=== PATIENT | male | born 1990 | race Caucasian/White ===

== ENCOUNTER 2023-09-02 15:32 | Emergency (ER) | payer BC, SELFPAY ==
[2023-09-02 15:46] VITALS: BP 144/87; PULSE 96; RESP 16; TEMP 36.9; O2SAT 100
--- NOTE | 2023-09-02 16:06 | ED.EXTPRO ---
HPI - Extremity Problem General Chief complaint: Extremity Problem,Nontraumatic Stated complaint: Right Big Toe Pain Time Seen by Provider: 09/02/23 16:23 Source: patient and RN notes reviewed Mode of arrival: ambulatory Limitations: no limitations History of Present Illness HPI Narrative: 33-year-old male presents with concern for pain, redness, swelling to the 1st digit of the right foot. Reports it started Thursday. Reports he has had gout once before many years ago after ingesting a large amount of protein. Reports he recently ingested a large amount of protein MD Complaint: extremity pain Related Data Allergies Allergy/AdvReac Type Severity Reaction Status Date / Time amoxicillin AdvReac Unknown Nausea and Verified 09/02/23 15:56 Vomiting ciprofloxacin AdvReac Unknown Nausea and Verified 09/02/23 15:56 Vomiting Review of Systems Review of Systems: CONSTITUTIONAL: Denies malaise, chills, sweats, or fever. SKIN: Denies rash or itching, open skin, laceration, abrasion MUSCULOSKELETAL: Reports pain, redness, swelling the 1st digit of the right foot NEUROLOGIC: Denies numbness, weakness All systems reviewed & are unremarkable except as noted in HPI and below PMFSH Social History Social History Smoking status: Never smoker Comments At time of signature, agree with nursing past medical, surgical, social and family history. There is no relevant family history pertinent to the presenting complaint Exam Narrative: GENERAL: Well-appearing, well-nourished, and in no acute distress. HEAD: Normocephalic, atraumatic. EYES: PERRLA, conjunctivae clear, and EOMI. ENT: Mucous membranes moist. NECK: Supple. No lymphadenopathy CHEST: Clear to auscultation. No respiratory distress. HEART: Regular rate and rhythm. SKIN: Warm, dry. First digit of right foot is mildly edematous, erythematous, warm, tender without induration, open skin, fluctuation consistent with gout NEURO: Alert and oriented x3. PSYCH: Normal mood and affect Course Course Emergency Course: Patient is aware of diagnosis, understands and agrees to treatment plan. Anticipatory guidance given. Patient agrees to follow-up as directed and is aware of reasons to seek care at the emergency department. Portions of this record may have been created with voice recognition software Level of Care: Express Care Visit Vital Signs Vital signs: Vital Signs Temperature 98.5 F 09/02/23 15:46 Pulse Rate 96 09/02/23 15:46 Respiratory Rate 16 09/02/23 15:46 Blood Pressure 144/87 H 09/02/23 15:46 Pulse Oximetry 100 09/02/23 15:46 Oxygen Delivery Room Air 09/02/23 15:46 Temperature 98.5 F 09/02/23 15:46 Pulse Rate 96 09/02/23 15:46 Respiratory Rate 16 09/02/23 15:46 Blood Pressure 144/87 H 09/02/23 15:46 Pulse Oximetry 100 09/02/23 15:46 Oxygen Delivery Room Air 09/02/23 15:46 Reviewed. MDM - Extremity (Nontraumatic) Differential Diagnosis Differential diagnosis: Likely gout, cellulitis, lower extremity edema and deep vein thrombosis of lower extremity Critical Care Time Critical Care Time Critical Care Time: No Discharge Plan Discharge Clinical Impression: Gout Patient Disposition: Home, Self-Care Condition: Stable Instructions: Gout (ED) Additional Instructions: 1) Please follow-up with your primary care doctor in the next 1-2 days. 2) If you have any worsening of symptoms or any other urgent concerns please go to the ER. 3) Please take medications as prescribed. 4) Please read and follow information included in discharge instructions. Prescriptions: New prednisone 20 mg tablet 40 mg PO DAILY 5 Days Qty: 10 0RF colchicine 0.6 mg capsule See Rx Instructions .ROUTE .COMPLEX Qty: 3 0RF Rx Instructions: take 2 caps now, then one hour later take one cap Follow-up/Referrals: PHYSICIAN,COOK FRUIT [Primary Care Provider] - Time of Disposition: 16:32
== END 2023-09-02 16:34 | disposition home or self-care (01) ==
PROVIDERS: Emergency Provider Nurse Practitioner
DX: M10.9 Gout, unspecified (principal)
CPT/HCPCS: 99213; G0463